=== PATIENT | female | born 1990 | race Caucasian/White ===

== ENCOUNTER 2024-03-12 15:50 | Outpatient (CLI) | payer OTHER, SELFPAY | END 2024-03-12 15:51 | disposition home or self-care (01) | LOC: AMB 04-05 01:30 | PROVIDERS: Visit Provider Family Medicine | DX: S39.92XA Unspecified injury of lower back, initial encounter (principal); V43.62XA Car passenger injured in collision with other type car in traffic accident, initial encounter; Y92.411 Interstate highway as the place of occurrence of the external cause | CPT/HCPCS: A0998 ==

== ENCOUNTER 2024-07-15 12:50 | Outpatient (CLI) | payer OTHER, SELFPAY | END 2024-07-15 12:51 | disposition home or self-care (01) | PROVIDERS: PCP Family Medicine; Visit Provider Family Medicine | DX: R07.89 Other chest pain (principal); R42 Dizziness and giddiness; R20.0 Anesthesia of skin | CPT/HCPCS: A0425; A0427 ==